=== PATIENT | female | born 1955 | race Hispanic/Latino ===

== ENCOUNTER 2017-11-22 12:46 | Outpatient (CLI) | payer BC | END 2017-11-22 12:47 | disposition home or self-care (01) | LOC: BICMAMMO 12:46 | PROVIDERS: ATTEND Family Medicine | DX: Z12.31 Encounter for screening mammogram for malignant neoplasm of breast (principal); Z85.038 Personal history of other malignant neoplasm of large intestine | CPT/HCPCS: 77063; 77067 ==

== ENCOUNTER 2017-11-22 14:41 | Outpatient (CLI) | payer BC ==
--- NOTE | 2017-11-22 16:18 | ULT ---
ULTRASOUND SOFT TISSUE NECK: HISTORY: Doctor felt lump of the left side of the neck. COMPARISON: None. There are multiple bilateral lymph nodes with loss of normal fatty hilum. Although these are not malcolm hnically abnormally increased in size, they do albert loss of the normal fatty hilum. The left neck ly mph node is approximately 1 cm from the surface without normal lobular appearance. There are ovoid l ymph nodes in the right neck which have lost their normal fatty hilum. IMPRESSION: Multiple bilateral neck lymph nodes with loss of normal fatty hilum. The most suspicious lymph nodes in the left neck 1 cm from the surface have a lobular shape with angular markings. Fine needle aspi ration may be necessary in this patient. Alternatively, a CT of the neck with contrast can be perfor med to evaluate for other areas. POS: [facility]
== END 2017-11-22 14:42 | disposition home or self-care (01) ==
LOC: ULT 14:41
PROVIDERS: ATTEND Internal Medicine Medical Oncology
DX: R22.1 Localized swelling, mass and lump, neck (principal); Z85.048 Personal history of other malignant neoplasm of rectum, rectosigmoid junction, and anus
CPT/HCPCS: 76536

== ENCOUNTER 2017-12-09 09:08 | Outpatient (CLI) | payer BC ==
--- NOTE | 2017-12-09 12:27 | CT ---
NECK CT WITH IV CONTRAST: DATE: 12/09/17. COMPARISON: None. HISTORY: Palpable abnormality in the left aspect of the neck, possible left-sided lymphadenopathy on recent ul trasound. TECHNIQUE: Serial axial CT imaging is obtained at 2.5 mm intervals from the skull base through the lung apices w ith intravenous contrast. Reformatted imaging obtained. FINDINGS: The imaged lung apices are unremarkable. Parenchyma appears grossly unremarkable. There is mild polypoid mucosal thickening of alveolar recess right maxillary sinus. The retroantral and parapharyngeal fat appears clear bilaterally. The parotid glands and submandibular glands appear within normal limits. The tonsillar pillars, epiglottis, and preepiglottic fat, hyoid bone, cricoid cartilage, thyroid cart ilage, thyroid gland, and level of the glottis appear within normal limits. There are no enlarged lymph nodes identified within the neck on either side. There are multiple subc entimeter nodes within the posterior triangle bilaterally as well as in level I and level II bilatera lly. The significance of the subcentimeter lymph node is uncertain and in the absence of known malig deanna, likely within normal limits. Clinical correlation is essential. Review of osseous structures demonstrates no worrisome lytic or blastic bone lesion. IMPRESSION: No enlarged lymph nodes are seen within the neck. Multiple subcentimeter lymph nodes are noted withi n the neck bilaterally as detailed above, likely within normal limits depending on the patient's clin ical history. POS: [facility]
--- NOTE | 2017-12-09 12:27 | CT ---
CHEST CT WITHOUT CONTRAST: Date: 12/09/17 COMPARISON: None. HISTORY: Prior history of rectal cancer, assess for lymphadenopathy. TECHNIQUE: Serial axial CT imaging at 5 mm intervals from the thoracic inlet through the upper abdomen with IV c ontrast. Coronal reformatted imaging obtained. FINDINGS: There is no lymphadenopathy in the axillar, hilar, or mediastinal regions. Visualized upper abdomen d emonstrates the partially imaged atrophic left kidney. Right kidney is nonvisualized. Partially imaged common bile duct is dilated, measuring in the 1.2 cm range. There is a small hiatal hernia. There is coronary arterial calcification. There is no pleural, pericardial, or mediastinal fl uid. No pneumothorax is seen. There is no suspicious pulmonary parenchymal mass lesion or nodule noted. No bronchial lesion present . Multilevel mild disc space narrowing and osteophyte formation noted within the thoracic spine. IMPRESSION: 1. Common bile duct is dilated, significance uncertain. This could represent change associated with prior cholecystectomy in the proper clinical setting, or could be on the basis of a biliary obstructi ve process. Clinical correlation and correlation with liver function tests advised. 2. Nonvisualized right kidney. Atrophic left kidney. 3. Small hiatal hernia. CODE T. POS: [facility]
[2017-12-09] MEDS ORDERED: Iopamidol 370 76% 100 ML VIAL ONE (13:33)
== END 2017-12-09 09:09 | disposition home or self-care (01) ==
LOC: CT 09:08
PROVIDERS: ATTEND Internal Medicine Medical Oncology
DX: C20 Malignant neoplasm of rectum (principal); R22.1 Localized swelling, mass and lump, neck; K44.9 Diaphragmatic hernia without obstruction or gangrene; N26.1 Atrophy of kidney (terminal); Z90.49 Acquired absence of other specified parts of digestive tract
CPT/HCPCS: 70491; 71260; 82565; 87077; 87086; 87186

== ENCOUNTER 2018-12-02 12:45 | Outpatient (CLI) | payer BC ==
--- NOTE | 2018-12-02 14:07 | ULT ---
RENAL ULTRASOUND: HISTORY: Hydronephrosis. Renal calculi. TECHNIQUE: Multiple longitudinal and transverse images of the kidneys and bladder are obtained using a Multi-Her tz curvilinear transducer. Real-time and color-flow images are obtained. FINDINGS: The urinary bladder is not visualized due to lack of intraluminal urine. Both kidneys are visualized. There is moderate to severe right-sided hydroureteronephrosis. The rig ht kidney measures 9.6 cm from pole to pole with calyceal and renal pelvic dilatation. A small area of hyperechogenicity is seen in the mid pole of the right kidney, possibly representing a small renal calculus. The left kidney is markedly atrophied, with pole to pole measurement approximately 6.4 cm. IMPRESSION: Hydronephrotic right kidney with atrophied left kidney. POS: [facility]
== END 2018-12-02 12:46 | disposition home or self-care (01) ==
LOC: BICULT 12:45
PROVIDERS: ATTEND Urology
DX: N20.0 Calculus of kidney (principal); N13.30 Unspecified hydronephrosis
CPT/HCPCS: 76770

== ENCOUNTER 2019-10-14 06:19 | Emergency (ER) | payer BC ==
[2019-10-14 06:50] LABS: Bilirubin Negative (Negative); Blood, Urine 1+ (Negative); Clarity Turbid (Clear); Glucose, Urine (Dipstick) Normal (Negative); Leukocyte 500 Leu/uL (Negative); Nitrite Negative (Negative); Protein, Urine (Dipstick) Negative (Neg-Trace); Squamous Epithelial 0-3 HPF (0-3); Urobilinogen Normal mg/dL (Less than 2); WBC/HPF Greater than 50 HPF (0-3)
[2019-10-14 06:51] LABS: Bacteria/HPF 1+ HPF (None Seen)
== END 2019-10-14 07:00 | disposition home or self-care (01) ==
LOC: ERS 06:19
DX: N39.0 Urinary tract infection, site not specified (principal); Z87.891 Personal history of nicotine dependence
CPT/HCPCS: 81003; 81015; 87077; 87086; 87186; 99283

== ENCOUNTER 2019-12-06 15:15 | Outpatient (CLI) | payer BC ==
--- NOTE | 2019-12-06 16:22 | MMO ---
Bilateral MAMMO Bilat Screen [facility]. CLINICAL HISTORY: Patient is 64 years old and is seen for screening. The patient has no family history of breast cancer. The patient has a history of colon cancer 2002. VIEWS: The views performed were: bilateral craniocaudal with tomosynthesis and bilateral mediolateral oblique with tomosynthesis. FILMS COMPARED: The present examination has been compared to prior imaging studies performed at [facility] on 11/22/2017, and at [facility] on 04/24/2013 and 05/05/2016. This study has been interpreted with the assistance of computer-aided detection. MAMMOGRAM FINDINGS: There are scattered fibroglandular densities. There are no suspicious masses, suspicious calcifications, or new areas of architectural distortion. IMPRESSION: THERE IS NO MAMMOGRAPHIC EVIDENCE OF MALIGNANCY. A ROUTINE FOLLOW-UP MAMMOGRAM IN 1 YEAR IS RECOMMENDED. THE RESULTS OF THIS EXAM WERE SENT TO THE PATIENT. ACR BI-RADS Category 1 - Negative MAMMOGRAPHY NOTE: 1. A negative mammogram report should not delay a biopsy if a dominant of clinically suspicious mass is present. 2. Approximately 10% to 15% of breast cancers are not detected by mammography. 3. Adenosis and dense breasts may obscure an underlying neoplasm. Reported by: OLMAN TA MD Electonically Signed: [id number]
== END 2019-12-06 15:16 | disposition home or self-care (01) ==
LOC: BICMAMMO 15:15
PROVIDERS: ATTEND Family Medicine
DX: Z12.31 Encounter for screening mammogram for malignant neoplasm of breast (principal); Z85.038 Personal history of other malignant neoplasm of large intestine
CPT/HCPCS: 77063; 77067

== ENCOUNTER 2020-04-20 10:06 | Emergency (ER) | payer BC ==
[2020-04-20 12:05] LABS: Bacteria/HPF 4+ HPF (None Seen); Bilirubin Negative (Negative); Blood, Urine Trace (Negative); Clarity Turbid (Clear); Glucose, Urine (Dipstick) Normal (Negative); Ketone, Urine Negative (Negative); Leukocyte 500 Leu/uL (Negative); Nitrite 2+ (Negative); Protein, Urine (Dipstick) Negative (Neg-Trace); Specific Gravity, Urine 1.008 (1.002-1.036); Squamous Epithelial 0-3 HPF (0-3); Urobilinogen Normal mg/dL (Less than 2); WBC/HPF Greater than 50 HPF (0-3)
[2020-04-20] MEDS ORDERED: Ciprofloxacin 500 MG TAB ONE (12:43)
== END 2020-04-20 12:54 | disposition home or self-care (01) ==
LOC: ERS 10:06
DX: N30.00 Acute cystitis without hematuria (principal); R19.7 Diarrhea, unspecified; Z87.891 Personal history of nicotine dependence
CPT/HCPCS: 81003; 81015; 87077; 87086; 87186; 99283

== ENCOUNTER 2021-01-31 14:07 | Outpatient (CLI) | payer BC, MEDICARE | END 2021-01-31 14:08 | disposition home or self-care (01) | LOC: BICULT 14:07 | PROVIDERS: ATTEND Nurse Practitioner Family | DX: R22.41 Localized swelling, mass and lump, right lower limb (principal); M71.21 Synovial cyst of popliteal space [Baker], right knee | CPT/HCPCS: 76882 ==

== ENCOUNTER 2021-09-03 13:27 | Outpatient (CLI) | payer BC, MEDICARE | END 2021-09-03 13:28 | disposition home or self-care (01) | LOC: BICCT 13:27 | PROVIDERS: ATTEND Urology | DX: N20.0 Calculus of kidney (principal) | CPT/HCPCS: 74176 ==

== ENCOUNTER 2022-01-22 11:25 | Emergency (ER) | payer BC, MEDICARE ==
[2022-01-22] MEDS ORDERED: levETIRAcetam 500 MG/5 ML VIAL ONE (11:51)
[2022-01-22] MEDS ORDERED: Clindamycin/D5W 600 mg/50 ml Premix Bag ONE (12:43)
[2022-01-22 12:47] LABS: #Lymphocytes 0.9 thou/uL (1.20-3.40); #Monocytes 0.4 thou/uL (0.11-0.59); #Neutrophils 9.2 thou/uL (1.40-6.50); %Basophils 0.4 % (0.0-1.0); %Eosinophils 0.2 % (0.0-10.0); %Lymphocytes 8.1 % (21.0-51.0); %Monocytes 3.7 % (0.0-10.0); %Neutrophils 87.6 % (42.0-75.0); Mean Corpuscular HGB CONC 31.9 g/dL (32.0-36.0); Mean Corpuscular Hemoglobin 30.2 pg (27.0-31.0); Mean Corpuscular Volume 94.7 fL (78.0-98.0); Mean Platelet Volume 7.8 fL (7.4-10.4); Platelet Count 190 thou/uL (130-400); RBC Distribution Width 13.5 % (11.5-14.5); Red Blood Cell (RBC) Count 3.98 mill/uL (4.20-5.40); White Blood Cell (WBC) Count 10.5 thou/uL (4.8-10.8)
[2022-01-22 13:03] LABS: ALT (SGPT) 24 U/L (8-55); AST (SGOT) 26 U/L (5-34); Albumin 3.8 g/dL (3.4-4.8); Alkaline Phosphatase 103 U/L (40-110); Anion Gap 16 mmol/L (10-20); BUN (Urea Nitrogen) 23 mg/dL (9.8-20.1); Bilirubin, Total 0.8 mg/dL (0.2-1.2); Calc. Creatinine Clearance 0 mL/min (70-130); Carbon Dioxide 18 mmol/L (23-31); Chloride 106 mmol/L (98-107); Globulin 3.4 g/dL (2.4-3.5); Glucose 103 mg/dL (80-115); Potassium 3.7 mmol/L (3.5-5.1); Protein, Total 7.2 g/dL (5.8-8.1); Sodium 136 mmol/L (136-145)
[2022-01-22 14:36] LABS: Bacteria/HPF 2+ HPF (None Seen); Bilirubin Negative (Negative); Blood, Urine Trace (Negative); Clarity Clear (Clear); Glucose, Urine (Dipstick) Normal (Negative); Ketone, Urine Negative (Negative); Leukocyte 500 Leu/uL (Negative); Nitrite Negative (Negative); Protein, Urine (Dipstick) 10 mg/dL (Neg-Trace); RBC/HPF 0-3 HPF (0-3); Specific Gravity, Urine 1.007 (1.002-1.036); Squamous Epithelial None Seen HPF (0-3); Urobilinogen Normal mg/dL (Less than 2); WBC/HPF Greater than 50 HPF (0-3); pH, Urine 6.5 (5.0-9.0)
== END 2022-01-22 15:00 | disposition home or self-care (01) ==
LOC: ERS 11:25
DX: L03.311 Cellulitis of abdominal wall (principal); Z53.9 Procedure and treatment not carried out, unspecified reason; Z87.891 Personal history of nicotine dependence
CPT/HCPCS: 36415; 80053; 81003; 81015; 83605; 85025; 94760; 96365; J1953; J3490

== ENCOUNTER 2023-08-16 10:59 | Outpatient (CLI) | payer BC, OTHER | END 2023-08-16 11:00 | disposition home or self-care (01) | LOC: BICRAD 10:59 | PROVIDERS: ATTEND Physician Assistant | DX: M25.561 Pain in right knee (principal); M17.11 Unilateral primary osteoarthritis, right knee; M25.461 Effusion, right knee | CPT/HCPCS: 87086 ==

== ENCOUNTER 2023-08-26 14:32 | Outpatient (CLI) | payer BC, MEDICARE | END 2023-08-26 14:33 | disposition home or self-care (01) | LOC: RAD 14:32 | PROVIDERS: ATTEND Physician Assistant | DX: M25.461 Effusion, right knee (principal); M17.11 Unilateral primary osteoarthritis, right knee ==

== ENCOUNTER 2024-09-22 13:02 | Emergency (ER) | payer MEDICARE ==
[2024-09-22 13:47] LABS: #Basophils 0.03 10x3/uL (0.0-0.2); %Basophils 0.4 % (0.0-1.0); %Eosinophils 1.2 % (0.0-10.0); %Lymphocytes 22.4 % (21.0-51.0); %Monocytes 6.9 % (0.0-10.0); %Neutrophils 68.7 % (42.0-75.0); Hematocrit 40.4 % (36.0-47.0); Mean Corpuscular HGB CONC 32.2 g/dL (32.0-36.0); Mean Corpuscular Volume 93.3 fL (78.0-98.0); Mean Platelet Volume 9.9 fL (7.4-10.4); Platelet Count 283 10x3/uL (130-400); RBC Distribution Width 13.2 % (11.5-14.5); Red Blood Cell (RBC) Count 4.33 mill/uL (4.20-5.40)
[2024-09-22 14:13] LABS: ALT (SGPT) 14 U/L (8-55); AST (SGOT) 18 U/L (5-34); Albumin 3.7 g/dL (3.4-4.8); Alkaline Phosphatase 92 U/L (40-110); Anion Gap 12 mmol/L (10-20); BUN (Urea Nitrogen) 20 mg/dL (9.8-20.1); Bilirubin, Total 0.7 mg/dL (0.2-1.2); Calc. Creatinine Clearance 0 mL/min (70-130); Calcium 8.9 mg/dL (7.8-10.44); Carbon Dioxide 19 mmol/L (23-31); Chloride 110 mmol/L (98-107); Estimated GFR 45; Globulin 3.5 g/dL (2.4-3.5); Glucose 94 mg/dL (80-115); Potassium 3.8 mmol/L (3.5-5.1); Protein, Total 7.2 g/dL (5.8-8.1); Sodium 137 mmol/L (136-145); Uric Acid 5.9 mg/dL (2.6-6.0)
[2024-09-22 15:14] LABS: Bacteria/HPF 4+ HPF (None Seen); Bilirubin Negative (Negative); Blood, Urine Trace (Negative); CAUTI Indications for Culture Dysuria,urgency,freq; Clarity Turbid (Clear); Glucose, Urine (Dipstick) Normal (Negative); Ketone, Urine Negative (Negative); Leukocyte 500 Leu/uL (Negative); Nitrite Negative (Negative); Protein, Urine (Dipstick) 10 mg/dL (Neg-Trace); RBC/HPF 0-3 HPF (0-3); Specific Gravity, Urine 1.007 (1.002-1.036); Squamous Epithelial 0-3 HPF (0-3); Urobilinogen Normal mg/dL (Less than 2); WBC/HPF Greater than 50 HPF (0-3); pH, Urine 6.5 (5.0-9.0)
[2024-09-22 15:37] LABS: Urine Culture Reflex Yes Yes
== END 2024-09-22 13:10 | disposition home or self-care (01) ==
LOC: ERS 13:02
DX: S93.401A Sprain of unspecified ligament of right ankle, initial encounter (principal); N39.0 Urinary tract infection, site not specified; K21.9 Gastro-esophageal reflux disease without esophagitis; Z87.891 Personal history of nicotine dependence; X58.XXXA Exposure to other specified factors, initial encounter
CPT/HCPCS: 36415; 80053; 81001; 84550; 85025; 87077; 87086; 87186; 99283

== ENCOUNTER 2024-10-14 07:15 | Emergency (ER) | payer MEDICARE | END 2024-10-14 08:35 | disposition home or self-care (01) | LOC: ERS 07:15 | DX: Z46.89 Encounter for fitting and adjustment of other specified devices (principal); K21.9 Gastro-esophageal reflux disease without esophagitis; Z87.891 Personal history of nicotine dependence; Z79.899 Other long term (current) drug therapy | CPT/HCPCS: 99282 ==

== ENCOUNTER 2025-05-12 06:08 | Emergency (ER) | payer MEDICARE ==
[2025-05-12] MEDS ORDERED: diphenhydrAMINE 50 MG/ML VIAL ONE (09:48)
[2025-05-12] MEDS ORDERED: Famotidine/PF 20 mg/2ml Vial ONE ×2 (09:48→09:50)
[2025-05-12 10:16] LABS: ALT (SGPT) 19 U/L (Less than 34); AST (SGOT) 42 U/L (11-34); Albumin 4.4 g/dL (3.1-4.5); Alkaline Phosphatase 107 U/L (40-110); Anion Gap 14 mmol/L (10-20); BUN (Urea Nitrogen) 14 mg/dL (9.8-20.1); Bilirubin, Total 1.1 mg/dL (0.3-1.2); Calc. Creatinine Clearance 0 mL/min (70-130); Calcium 9.4 mg/dL (7.8-10.44); Carbon Dioxide 20 mmol/L (23-31); Chloride 110 mmol/L (98-107); Globulin 3.6 g/dL (2.4-3.5); Glucose 101 mg/dL (80-115); Potassium 3.6 mmol/L (3.5-5.1); Sodium 140 mmol/L (136-145)
== END 2025-05-12 11:15 | disposition home or self-care (01) ==
LOC: ERS 06:08
DX: L29.9 Pruritus, unspecified (principal); Z87.891 Personal history of nicotine dependence
CPT/HCPCS: 80053; J1200; J1308; J2919; 96374; 96375